=== PATIENT | male | born 1965 | race Caucasian/White ===

== ENCOUNTER 2017-01-12 09:29 | Inpatient (IN) ==
--- NOTE | 2017-01-11 16:32 | Discharge Summary ---
<TeriRaysa Noah - Last Filed: 01/11/17 16:30> Date of Encounter: 01/11/17 - Discharge Diagnosis (1) Arthritis of knee, left Priority: Primary Status: Acute (2) Tobacco use Priority: Secondary Status: Chronic (3) HTN (hypertension) Priority: Secondary Status: Chronic Qualifiers: Hypertension type: essential hypertension Qualified Code(s): I10 - Essential (primary) hypertension (4) Hyperlipidemia Priority: Secondary Status: Chronic Qualifiers: Hyperlipidemia type: unspecified Qualified Code(s): E78.5 - Hyperlipidemia , unspecified - Discharge Medications Home Medications: Omeprazole [Prilosec] 20 mg PO DAILY 03/22/15 [History] Ranitidine HCl [Zantac] 150 mg PO BID 03/22/15 [History] Simvastatin [Zocor] 20 mg PO HS 03/22/15 [History] Allopurinol [Zyloprim] 300 mg PO DAILY 03/29/15 [History] Metoprolol [Lopressor] 25 mg PO BID 03/29/15 [History] Amitriptyline [Elavil] 25 mg PO HS 04/09/16 [History] Aspirin Enteric Coated [Aspirin EC] 325 mg PO DAILY #21 tablet. 01/11/17 [Rx] OxyCODONE Immed Rel [Roxicodone 5 MG] 5 - 10 mg PO Q6HR PRN #40 tablet 01/11/17 [Rx] amLODIPine [Norvasc] 5 mg PO DAILY 01/12/17 [History] Allergies/Adverse Reactions: Allergies NSAIDS (Non-Steroidal Anti-Inflamma Adverse Reaction (Verified 01/12/17 10:27) See Comments KIDNEY SHUT DOWN Primary care physician: Ady Rock MD - Patient Status Disposition: Home, Self-Care Condition: Good - Discharge Instructions Follow Up With: Ady Rock MD [Primary Care Provider] - - Hospital Course Hospital course: Mr. Soto is a 51 year old male - Time Spent with Patient Total time spent providing and/or coordinating discharge services: <Jerald Nieto - Last Filed: 01/13/17 08:11> Date of Encounter: 01/13/17 Time of Encounter: 08:11 - Discharge Diagnosis (1) Hyperlipidemia Priority: Secondary Status: Chronic Qualifiers: Hyperlipidemia type: unspecified Qualified Code(s): E78.5 - Hyperlipidemia , unspecified (2) History of gout Priority: Secondary Status: Chronic (3) Arthritis of knee, left Priority: Primary Status: Acute (4) Tobacco use Priority: Secondary Status: Chronic (5) HTN (hypertension) Priority: Secondary Status: Chronic Qualifiers: Hypertension type: essential hypertension Qualified Code(s): I10 - Essential (primary) hypertension Primary care physician: Ady Rock MD - Patient Status Functional capacity at discharge: uses cane/walker Overall status at discharge: patient is progressing back to baseline - Hospital Course Hospital course: Mr. Soto is a 51 year old male The patient had an uneventful postoperative course. They received antibiotics and physical therapy and were discharged in stable condition. There will follow -up in the office in 2 weeks. Aspirin DVT prophylaxis - Time Spent with Patient Total time spent providing and/or coordinating discharge services:
[2017-01-12] MEDS ORDERED: Lidocaine -MPF 1% 2 ML VIAL ID ONE (09:50)
[2017-01-12] MEDS ORDERED: CeFAZolin Pre 2,000 MG/100 ML 2,000 MG/100 ML BAG IVPB ONE (09:50)
[2017-01-12] MEDS ORDERED: Albuterol 2.5 MG/3 ML NEBULIZER IH ONE (09:50)
[2017-01-12] MEDS ORDERED: Albuterol 2.5 MG/3 ML NEBULIZER ONE (09:54)
[2017-01-12] MEDS ORDERED: Ringers Solution, Lactated 1,000 ML IVC SCH ×2 (10:00→13:56)
--- NOTE | 2017-01-12 10:15 | Anesthesia Evaluation PreOp ---
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 TKR, Knee scopes, R. neck mass, pallet/nasal sx, R. forearm) Alcohol Use: none Drug use: none Medications and Allergies Omeprazole [Prilosec] 20 mg PO DAILY 03/22/15 [History] Ranitidine HCl [Zantac] 150 mg PO BID 03/22/15 [History] Simvastatin [Zocor] 20 mg PO DAILY 03/22/15 [History] Allopurinol [Zyloprim] 300 mg PO DAILY 03/29/15 [History] Metoprolol [Lopressor] 25 mg PO BID 03/29/15 [History] Amitriptyline [Elavil] 25 mg PO HS 04/09/16 [History] Aspirin Enteric Coated [Aspirin EC] 325 mg PO DAILY #21 tablet. 01/11/17 [Rx] OxyCODONE Immed Rel [Roxicodone 5 MG] 5 - 10 mg PO Q6HR PRN #40 tablet 01/11/17 [Rx] amLODIPine [Norvasc] 5 mg PO DAILY 01/12/17 [History] Allergies NSAIDS (Non-Steroidal Anti-Inflamma Adverse Reaction (Verified 01/12/17 10:27) See Comments KIDNEY SHUT DOWN - Meds/Allergy Pre-op Review Medications Reviewed: Yes Allergies Reviewed: Yes Beta Blockers on Current Med List: No Anesthesia Results - Labs Laboratory Tests 01/05/17 01/05/17 01/05/17 12:05 12:05 12:05 WBC 7.1 Hgb 14.5 Hct 44.6 Plt Count 230 INR 1.1 Sodium 143 Potassium 4.3 Chloride 107 Carbon Dioxide 26 BUN 12 04/10/16 Echo EF-65% No sig valvular dx Stress 04/10/16 EF-> 70% No ischemia - Imaging EKG: image reviewed (SR, LVH) Anesthesia Exam O2 Sat Height 1.8 m Height 1.8 m Weight 93.894 kg Weight 93.894 kg O2 Sat by Pulse Oximetry 95 O2 Sat by Pulse Oximetry 95 Vital Signs Temp Pulse Resp BP Pulse Ox 98.4 F 70 18 146/101 95 01/12/17 10:22 01/12/17 10:22 01/12/17 10:22 01/12/17 10:22 01/12/17 10:22 Height: 5'11'' Weight: 207# NPO (# of Hours): > 8 hrs Pain Scale: 0 Pain Scale Used: Numeric (1 - 10) - HEENT Pupil (Motor): Pupils equal, EOMI Mallampati: III Teeth: Edentulous Denture Type: Upper: Complete, Lower: Complete Oral Opening: Greater than 3 - RIBBON HANKING MACHINE OPERATOR LOC: Oriented RIBBON HANKING MACHINE OPERATOR Motor: Normal RUE, Normal LUE, Normal RLE, Normal LLE, Normal Face RIBBON HANKING MACHINE OPERATOR Sensory: Normal: RUE, LUE, RLE, LLE, Face - Cardiac Rhythm: Regular Murmur: None JVD: No Carotid Bruit: No - Pulmonary Breath Sounds: bilateral Clear Respiratory Effort: Symmetrical Anesthesia Assess/Plan ASA Score: 2 Modified Arabella Scale for Level of Consciousness: Cooperative, oriented, and tranquil Anesthetic Plan: General, Regional Autologous Blood: Yes Monitoring Plan: Standard Monitors Recovery Plan: PACU
--- NOTE | 2017-01-12 10:23 | History & Physical Report ---
Date of Encounter: 01/12/17 Time of Encounter: 10:23 24 Hour HP Update - Instructions Instructions: If the History and Physical is less than 30 days old and was completed prior to A.M. admission and or procedure and has NOT been updated on calendar day of procedure please complete this update prior to performing procedure. - Update Patient reports changes in Medical Condition: No Changes in examination, assessment, or condition: No Changes in Medication: No Preop tests/diagnostics Reviewed: Yes Surgery Remains Indicated: Yes Consent for Planned Operative Procedure(s) Verified: Yes - Pre-Operative Checklist Preoperative Checklist Indicated: No Prophylactic Antibiotic Ordered: Yes Is VTE Prophylaxis Indicated?: Yes
[2017-01-12] MEDS ORDERED: *HR* Propofol 200 MG/20 ML VIAL IVP ONE ×2 (10:34→11:09)
[2017-01-12] MEDS ORDERED: Lidocaine -MPF 2% 2 ML VIAL ONE ×2 (10:34→11:10)
[2017-01-12] MEDS ORDERED: *HR* Rocuronium Bromide 50 MG/5 ML VIAL ONE (10:34)
[2017-01-12] MEDS ORDERED: *HR* FentaNYL (PF) 100 MCG/2 ML VIAL ONE ×2 (10:34→11:09)
[2017-01-12] MEDS ORDERED: *HR* Midazolam HCl 2 MG/2 ML VIAL ONE ×2 (10:35→11:09)
[2017-01-12] MEDS ORDERED: Bupivacaine/Clonidine Syringe 1 EACH SYRINGE ONE ×2 (10:42→11:10)
[2017-01-12] MEDS ORDERED: *HR* HYDROmorphone (PF) 1 MG/ML SYRINGE IVP PRN (11:05)
[2017-01-12] MEDS ORDERED: *HR* Promethazine 25 MG/ML VIAL IVP PRN (11:05)
[2017-01-12] MEDS ORDERED: Ondansetron 4 MG/2 ML VIAL IVP ONE (11:05)
[2017-01-12] MEDS ORDERED: *HR* Labetalol 100 MG/20 ML MDV IVP PRN (11:05)
[2017-01-12] MEDS ORDERED: Ondansetron 4 MG/2 ML VIAL ONE ×2 (11:10→11:52)
[2017-01-12] MEDS ORDERED: Dexamethasone 4 MG/ML VIAL ONE (11:52)
[2017-01-12] MEDS ORDERED: *HR* HYDROmorphone 2 MG/ML SYRINGE ONE (11:54)
--- NOTE | 2017-01-12 12:25 | Orthopedic Operative Note ---
Date of procedure: 01/12/17 Pre-op diagnosis: Left knee arthritis Post-op diagnosis: same Procedure: Procedure: Left Total knee replacement Estimated blood loss: 200 cc Hardware: Metal and polyethylene replacement. Arthrex Femur: 6 Tibia: 70 PS insert: 12 Patella: 40 Exam Under anesthesia: Varus alignment full flexion and extension Procedural Notes: Grade 4 arthritic changes medial compartment patellofemoral joint Operative procedure: The patient was brought to the operating room and placed on the operating room table. After general anesthesia was administered the operative knee was examined. Findings were noted in the exam under anesthesia. The operative extremity was prepped and draped in sterile surgical fashion. The patient received IV antibiotics prior to skin incision. A standard midline incision was made centered over the patella. The incision was made through the skin and subcutaneous tissue. A medial parapatellar tendon approach was performed. Care was taken to preserve tissue along the medial aspect of the patella. And to protect the patella tendon. The deep MCL was released off the medial tibia. The infra patella fat pad was excised. Knee was brought into flexion. Grade 4 arthritic changes medial compartment patellofemoral joint. The entry hole was made for the intramedullary femoral guide. The guide was seated in 6 degrees of valgus. Anterior cut was made followed by the distal cut. The ACL the PCL the medial and the lateral menisci were excised. The tibia was subluxed forward. The entry hole was made for the intramedullary tibial guide. Guide was seated to resect 2 mm off the more abnormal side. The knee was brought into flexion the distal femur was sized to a 6. The femoral guide was seated, the anterior cut was made followed by the posterior condylar cut, followed by the chamfer cuts. The finishing guide was seated the box cut was made and the lug holes were drilled. The tibia was sized to a 7, the tibial tray was seated and prepared with the large drill followed by the fin cutter. Trial reduction revealed full extension no varus valgus instability with the appropriate 12 PS Dara. The patella was everted and cut was made at the level of the insertion of the quadriceps and patella tendon. The patella was sized to a 40 the guide was seated and the lug holes are drilled. Trial reduction revealed excellent patella tracking. All trial components were removed all bony surfaces were irrigated. The tibia was cemented first followed by the femur. The 12 PS Dara was seated and the knee was brought into full extension. The patella was cemented and held in place with the patellar holding clamp. After the cement had hardened, the knee sat for 2 minutes with a Betadine saline solution. The knee was then irrigated out with 2 L of pulse irrigation. The extensor mechanism was closed with #2 FiberWire suture and #2 PDS suture. The subcutaneous tissue was then irrigated and closed deep with #1 PDS suture superficially with 0 PDS suture and skin was closed with skin rosemarie. The patient was then placed in a sterile dressing and a postoperative brace extubated and transferred to recovery room in stable condition. Anesthesia: ROB Surgeon: Jerald Nieto Degree Clerk: Cami Coleman Condition: stable Disposition: PACU
--- NOTE | 2017-01-12 12:41 | Anesthesia Procedures ---
Date of Encounter: 01/12/17 Time of Encounter: 11:20 Procedures: Anesthesia - Nerve Block Procedure Date: 01/12/17 Time: 11:20 Allergies/Adv Reactions: nsaids Pre-op Diagnosis: left knee arthritis Surgical Procedure: left total knee Checklist: Correct Patient Identifier, Correct procedure, History checked Correct side: Left Blood Thinner: No Monitor Applied: EKG, BP, Pulse Oximetry Supplemental Oxygen via Nasal Cannula (L/min): 2 Sedation: Versed (mg): 2 Sedation: Fentanyl (mcg): 100 Indication: Post Op Analgesia Pre-op Neuro Deficits: No Block Type: Femoral, Other (ipac) Catheter placed: No Sterile Technique: Yes Ultrasound used: Yes Anatomy identified: Yes Visual spread of Local: Yes Neuro Stimulation: Yes Nerve Stimulator Range: 0.2 - 0.4 mA Blood on Needle Aspiration: No Smooth Injection of Local: Yes Pain with Injection of Local: No Prep: Chlorhexadine Needle: 22 x 50 mm Stimuplex, 21 x 100 mm Stimuplex Local: 0.25% Bupivicaine w/Clonidine 20 mcg/cc Volume (cc): 60 Number of Attempts: 1 Complications: None/effective block Vitals: 3 Vital Signs Time 1120 1130 BP 148/100 143/93 Pulse 75 74 Resp 16 14 O2 Sat 97 97
--- NOTE | 2017-01-12 13:30 | Anesthesia Evaluation Post Op ---
Date of Encounter: 01/12/17 Time of Encounter: 13:25 - Vital Signs Vital Signs: vss - Lungs Lungs: Clear Ascult./Percussion - Airway Airway: Non-obstructed - Cardiovascular Regular Rate - Pain Pain Scale: 0 Pain Scale used: Numeric (1 - 10) - Nausea Vomiting Nausea Vomiting: Not Present - Hydration Hydration: Tolerates oral liquids, Ice chips - Discharge PostOp Status: Transfer Patient to floor
[2017-01-12 13:33] LABS: Hematocrit 35.8 % (37.5-50.1)
[2017-01-12 13:34] LABS: Hemoglobin 11.9 g/dL (12.9-16.9)
[2017-01-12] MEDS ORDERED: Naloxone 0.4 MG/ML INJ IVP PRN (13:56)
[2017-01-12] MEDS ORDERED: Temazepam 15 MG CAPSULE PO PRN (13:56)
[2017-01-12] MEDS ORDERED: *HR* OxyCODONE Immed Rel 5 MG TABLET PO PRN (13:56)
[2017-01-12] MEDS ORDERED: MOM Conc 10 ML UD.LIQ PO PRN (13:56)
[2017-01-12] MEDS ORDERED: Sennosides 8.6 MG TABLET PO PRN (13:56)
[2017-01-12] MEDS ORDERED: Ondansetron 4 MG/2 ML VIAL IVP PRN (13:56)
[2017-01-12] MEDS: *HR* OxyCODONE Immed Rel 5 MG TABLET PO PRN ×2 (14:22→18:27)
[2017-01-12] MEDS: *HR* Enoxaparin 30 MG/0.3 ML SYRINGE SQ SCH (16:47)
[2017-01-12] MEDS: ceFAZolin 2,000 MG in D5% in Water 100 ML IVPB SCH (16:47)
[2017-01-12] MEDS: *HR* HYDROmorphone (PF) 1 MG/ML SYRINGE IVP PRN ×2 (16:58→23:14)
[2017-01-12] MEDS ORDERED: *HR* Enoxaparin 30 MG/0.3 ML SYRINGE SQ SCH (18:00)
[2017-01-12] MEDS ORDERED: Famotidine 20 MG TABLET PO SCH (21:00)
[2017-01-13] MEDS: ceFAZolin 2,000 MG in D5% in Water 100 ML IVPB SCH (00:34)
[2017-01-13 05:50] LABS: Hemoglobin 10.9 g/dL (12.9-16.9)
[2017-01-13] MEDS: *HR* Enoxaparin 30 MG/0.3 ML SYRINGE SQ SCH (06:07)
[2017-01-13 06:09] LABS: BUN/Creatinine Ratio 13 (6-26); Blood Urea Nitrogen 15 mg/dL (8-26); Carbon Dioxide 26 mEq/L (19-29); Chloride 110 mEq/L (98-109); Glucose 110 mg/dL (70-99); Osmolality,Calculated 291 (280-300); Potassium 4.6 mEq/L (3.5-4.5); Sodium 140 mEq/L (136-145); eGFR For African Americans > 60 (> 60); eGFR For Non-African Americans > 60 (> 60)
[2017-01-13] MEDS: *HR* OxyCODONE Immed Rel 5 MG TABLET PO PRN (06:17)
--- NOTE | 2017-01-13 08:12 | Orthopedics Progress Note ---
Date of Encounter: 01/13/17 Time of Encounter: 08:12 - Assessment and Plan (1) Hyperlipidemia Current Visit: No Status: Chronic Qualifiers: Hyperlipidemia type: unspecified Qualified Code(s): E78.5 - Hyperlipidemia , unspecified (2) History of gout Current Visit: No Status: Chronic (3) Arthritis of knee, left Current Visit: Yes Status: Acute (4) Tobacco use Current Visit: Yes Status: Chronic (5) HTN (hypertension) Current Visit: Yes Status: Chronic Qualifiers: Hypertension type: essential hypertension Qualified Code(s): I10 - Essential (primary) hypertension Subjective Interval history: Patient was seen this morning doing well without complaints. Afebrile vital signs stable. Operative extremity: Neurovascularly intact Dressing clean dry and intact Calves nontender Assessment and plan: Continue with postoperative care Hematocrit 34 discharged today Objective Vital signs: Vital Signs Temp Pulse Resp BP Pulse Ox 01/13/17 06:48 98.1 F 55 18 109/70 94 01/13/17 04:01 98.2 F 54 14 108/65 91 01/12/17 22:44 98 F 72 18 134/81 94 01/12/17 19:25 98.0 F 68 17 117/77 94 01/12/17 16:44 98.9 F 90 16 137/76 93 01/12/17 16:00 98.6 F 71 16 117/71 93 01/12/17 15:00 97.9 F 70 16 134/84 95 01/12/17 14:29 97.5 F L 65 14 125/84 95 01/12/17 14:00 97.6 F 69 15 127/78 95 01/12/17 13:43 97.4 F L 65 15 123/84 97 01/12/17 13:33 97.4 F L 65 21 120/86 96 01/12/17 13:23 65 14 127/91 94 01/12/17 13:13 77 15 125/96 97 01/12/17 13:03 98.0 F 79 16 127/85 98 01/12/17 11:24 67 18 96 01/12/17 11:08 66 18 143/93 96 01/12/17 10:22 98.4 F 70 18 146/101 95 Intake and Output 01/12/17 01/13/17 01/13/17 23:59 07:59 15:59 Intake Total 340 / 340 Output Total 1250 / 1250 Balance -910 / -910 Intake: IV Fluids 100 / 100 Ancef 2,000 MG In 100 / 100 Dextrose 5% 100 ML @ 200 mls/hr IVPB Q8HR MEL Rx#: [id number] Oral 240 / 240 Output: Urine 1250 / 1250 Other: Meal Dinner Percent of Meal Consumed 100% # Voids 1 - Labs CBC & BMP: 01/13/17 05:23 01/13/17 05:23 Labs: Abnormal lab results Hgb 10.9 g/dL (12.9-16.9) L 01/13/17 05:23 Hct 34.0 % (37.5-50.1) L 01/13/17 05:23 Potassium 4.6 mEq/L (3.5-4.5) H 01/13/17 05:23 Chloride 110 mEq/L (98-109) H 01/13/17 05:23 Glucose 110 mg/dL (70-99) H 01/13/17 05:23 - VTE Documentation of Mechanical Device: Venous foot pump, device Consult Discharge Plan - Plan Referrals: Ady Rock MD [Primary Care Provider] -
[2017-01-13] MEDS ORDERED: amLODIPine 5 MG TABLET PO SCH (09:00)
[2017-01-13 11:05] VITALS: BP 130/83
== END 2017-01-13 14:03 | disposition home or self-care (01) | DRG 302 ==
LOC: SAMDAY 09:29 → 3NENU 13:55
PROVIDERS: ADMIT Orthopaedic Surgery; ATTEND Orthopaedic Surgery

== ENCOUNTER 2018-05-30 05:55 | Inpatient (IN) ==
[2018-05-30] MEDS ORDERED: CeFAZolin Syr 2,000MG/20 ML 2,000 MG/20 ML SYRINGE IVPB ONE (06:22)
[2018-05-30] MEDS ORDERED: Albuterol 2.5 MG/3 ML NEBULIZER IH ONE (06:22)
[2018-05-30] MEDS ORDERED: *HR* Rocuronium Bromide 50 MG/5 ML VIAL ONE (06:55)
[2018-05-30] MEDS ORDERED: Dexamethasone 4 MG/ML VIAL ONE (06:55)
[2018-05-30] MEDS ORDERED: Ondansetron 4 MG/2 ML VIAL ONE (06:55)
[2018-05-30] MEDS ORDERED: Lidocaine -MPF 4% 5 ML AMPUL ONE (06:55)
[2018-05-30] MEDS ORDERED: *HR* Remifentanil 1 MG VIAL IVP ONE ×2 (06:55→10:40)
[2018-05-30] MEDS ORDERED: *HR* Succinylcholine 200 MG/10 ML VIAL IVP ONE (06:55)
[2018-05-30] MEDS ORDERED: *HR* Phenylephrine 10 MG/ML VIAL ONE ×2 (06:55→07:02)
[2018-05-30] MEDS ORDERED: Lidocaine -MPF 2% 2 ML VIAL ONE ×2 (06:55→06:59)
[2018-05-30] MEDS ORDERED: *HR* Midazolam HCl 2 MG/2 ML VIAL ONE (06:56)
[2018-05-30] MEDS ORDERED: *HR* FentaNYL (PF) 100 MCG/2 ML VIAL ONE ×3 (06:56→11:11)
[2018-05-30] MEDS ORDERED: *HR* Propofol 200 MG/20 ML VIAL IVP ONE (06:56)
[2018-05-30] MEDS ORDERED: Famotidine 20 MG/2 ML VIAL IVP ONE (07:29)
[2018-05-30] MEDS ORDERED: Acetaminophen IV 1,000 MG/100 ML INFUS..BTL IVPB ONE (07:29)
--- NOTE | 2018-05-30 07:29 | Anesthesia Evaluation PreOp ---
Date of Encounter: 05/30/18 Time of Encounter: 07:27 - Past History Planned Operation: PLIF L5-S1, Laminectomy L2-3 Cardiac History: HTN, Hyperlipidemia, Other (pulmonary HTN mild) Pulmonary History: Smoker (1.5 ppd), Snore HELP DESK ASSISTANT History: Other (chronic back pain, lumbar stenosis) Other Medical History: Renal (CKD), GERD Anesthesia History: No Prior Anesthetic Complications, Past Anesthesia (cleft lip, pallet surgery,) Alcohol Use: none Drug use: none Medications and Allergies 3 Allergy/AdvReac Type Severity Reaction Status Date / Time NSAIDS (Non-Steroidal AdvReac See Verified 05/30/18 07:28 Anti-Inflamma Comments - Meds/Allergy Pre-op Review Medications Reviewed: Yes Allergies Reviewed: Yes Beta Blockers on Current Med List: Yes (metoprolol) If Beta Blockers taken, Date/Time (Last Dose taken): 429 Anesthesia Results - Labs Laboratory Tests 05/26/18 05/26/18 05/26/18 14:28 14:28 14:28 WBC 6.4 Hgb 14.8 Hct 45.6 Plt Count 223 PT 11.1 INR 1.0 APTT 31.9 Sodium 139 Potassium 4.4 Chloride 107 Carbon Dioxide 27 BUN 17 Creatinine 1.28 Est GFR ( Amer) > 60 Est GFR (Non-Af Amer) 59 L - Imaging EKG: report reviewed (SINUS RHYTHM MINIMAL VOLTAGE CRITERIA FOR LVH, CONSIDER NORMAL VARIANT NONSPECIFIC T-WAVE ABNORMALITY), image reviewed Additional studies: Impressions: LVEF 60-65%. Normal left ventricular diastolic function. Borderline dilated RV with normal function No significant valvular dysfunction. Probable mild pulmonary hypertension Anesthesia Exam Vital Signs/O2 Sat/Glucose, Most Recent Temp Pulse Resp BP Pulse Ox 97.8 F 69 18 135/93 98 05/30/18 06:28 05/30/18 06:28 05/30/18 06:28 05/30/18 06:28 05/30/18 06:28 - HEENT Pupil (Motor): Pupils equal Mallampati: III (previous valenzuela 2 no mention of difficult airway) Teeth: Edentulous Oral Opening: Greater than 3 - HELP DESK ASSISTANT LOC: Oriented HELP DESK ASSISTANT Motor: Normal RUE, Normal LUE, Normal RLE, Normal LLE, Normal Face HELP DESK ASSISTANT Sensory: Normal: RUE, LUE, RLE, LLE, Face - Cardiac Rhythm: Regular Murmur: None - Pulmonary Breath Sounds: bilateral Clear Respiratory Effort: Symmetrical Anesthesia Assess/Plan ASA Score: 3 Modified Arabella Scale for Level of Consciousness: Cooperative, oriented, and tranquil Anesthetic Plan: General Monitoring Plan: Standard Monitors Recovery Plan: PACU
[2018-05-30] MEDS ORDERED: Famotidine 20 MG/2 ML VIAL ONE (07:33)
[2018-05-30] MEDS ORDERED: Acetaminophen IV 1,000 MG/100 ML INFUS..BTL ONE (07:33)
[2018-05-30] MEDS: Ringers Solution, Lactated 1,000 ML IVC SCH ×6 (07:34→22:39)
--- NOTE | 2018-05-30 07:35 | History & Physical Report ---
Date of Encounter: 05/30/18 Time of Encounter: 07:34 24 Hour HP Update - Instructions Instructions: If the History and Physical is less than 30 days old and was completed prior to A.M. admission and or procedure and has NOT been updated on calendar day of procedure please complete this update prior to performing procedure. - Update Patient reports changes in Medical Condition: No Changes in examination, assessment, or condition: No Changes in Medication: No Preop tests/diagnostics Reviewed: Yes Pre-Op MRSA Screen: Negative Surgery Remains Indicated: Yes Consent for Planned Operative Procedure(s) Verified: Yes - Pre-Operative Checklist Preoperative Checklist Indicated: No Prophylactic Antibiotic Ordered: Yes Home Medications Include Beta Noelle: No Beta Noelel Taken Today (Day of Surgery): No Beta Noelle Taken Yesterday (Day Prior to Surgery): No Is VTE Prophylaxis Indicated?: Yes
[2018-05-30] MEDS ORDERED: Bacitracin 50,000 UNIT, Polymyxin B Sulfate 500,000 UNIT, Sodium Chloride IRRigation 1,... IR ONE (07:45)
[2018-05-30] MEDS ORDERED: EPHEDrine 50 MG/ML VIAL ONE (08:23)
[2018-05-30] MEDS ORDERED: *HR* Labetalol 20 MG/4 ML SYRINGE IVP PRN (09:10)
[2018-05-30] MEDS ORDERED: Ondansetron 4 MG/2 ML VIAL IVP ONE (09:10)
[2018-05-30] MEDS ORDERED: *HR* OxyCODONE Immed Rel 5 MG TABLET PO PRN (09:10)
[2018-05-30] MEDS ORDERED: *HR* Promethazine 25 MG/ML VIAL IVP PRN (09:10)
[2018-05-30] MEDS: *HR* HYDROmorphone (PF) 1 MG/ML SYRINGE IVP PRN ×2 (11:51→11:56)
--- NOTE | 2018-05-30 12:31 | Anesthesia Evaluation Post Op ---
Date of Encounter: 05/30/18 Time of Encounter: 12:25 - Vital Signs Vital Signs: Vital Signs/O2 Sat, Most Current Temp Pulse Resp BP Pulse Ox 98.3 F 81 14 101/71 93 05/30/18 12:11 05/30/18 12:21 05/30/18 12:21 05/30/18 12:21 05/30/18 12:21 - Lungs Lungs: Clear Ascult./Percussion - Airway Airway: Non-obstructed - Cardiovascular Regular Rate - Mental Status Mental Status: Alert & Oriented, Answers Appropriately - Pain Pain Scale: 9 (has rec'd pain med, falls quickly back to sleep) Pain Scale used: Numeric (1 - 10) - Nausea Vomiting Nausea Vomiting: Not Present - Hydration Hydration: Ice chips, West catheter - Discharge PostOp Status: Transfer Patient to floor
[2018-05-30] MEDS ORDERED: Naloxone 0.4 MG/ML INJ IVP PRN (16:52)
[2018-05-30] MEDS ORDERED: Ondansetron 4 MG/2 ML VIAL IVP PRN (16:52)
[2018-05-30] MEDS ORDERED: Acetaminophen 325 MG TABLET PO PRN (16:52)
[2018-05-30] MEDS: *HR* OxyCODONE Immed Rel 5 MG TABLET PO PRN ×2 (18:22→22:34)
[2018-05-30] MEDS: ceFAZolin 1,000 MG in Water for inj. (sterile) 20 ML 10 ML IVP SCH (18:36)
[2018-05-30] MEDS: Famotidine 20 MG TABLET PO SCH (21:08)
[2018-05-31] MEDS: ceFAZolin 1,000 MG in Water for inj. (sterile) 20 ML 10 ML IVP SCH (02:19)
[2018-05-31 05:46] LABS: Basophils % 0.1 %; Hematocrit 36.3 % (37.5-50.1); Immature Granulocytes % 0.5 % (0-4); Lymphocytes # 1.1 K/mcL (0.6-4.6); Lymphocytes % 7.2 %; Mean Corpuscular HGB Conc 33.1 g/dL (31.6-35.5); Mean Corpuscular Hemoglobin 31.8 pg (28.0-33.3); Mean Corpuscular Volume 96.3 fL (83.0-100.0); Mean Platelet Volume 10.7 fL (9.4-12.4); Monocytes # 0.7 K/mcL (0.0-1.3); Monocytes % 4.6 %; Neutrophils # 13.8 K/mcL (1.6-8.9); Platelet Count 193 K/mcL (140-400); Red Blood Count 3.77 M/mcL (4.19-5.50); Segmented Neutrophils % 87.6 %
[2018-05-31 06:04] LABS: BUN/Creatinine Ratio 15 (6-26); Blood Urea Nitrogen 19 mg/dL (6-20); Carbon Dioxide 25 mEq/L (23-29); Chloride 108 mEq/L (98-107); Glucose 130 mg/dL (70-105); Osmolality,Calculated 296 (280-300); Potassium 5.3 mEq/L (3.5-5.1); Sodium 141 mEq/L (136-145); eGFR For Non-African Americans 60 (> 60)
[2018-05-31] MEDS: *HR* OxyCODONE Immed Rel 5 MG TABLET PO PRN ×4 (06:06→22:30)
[2018-05-31] MEDS: Famotidine 20 MG TABLET PO SCH ×2 (08:06→20:25)
[2018-05-31] MEDS: *HR* HYDROcodone/Acet 5/325 mg TABLET PO PRN ×2 (08:19→20:51)
[2018-05-31] MEDS ORDERED: Lisinopril 20 MG TABLET PO SCH (09:00)
[2018-05-31] MEDS ORDERED: amLODIPine 5 MG TABLET PO SCH (09:00)
--- NOTE | 2018-05-31 13:59 | Spine Progress Note ---
Date of Encounter: 05/31/18 Time of Encounter: 13:58 Subjective Principal diagnosis: Spondylolisthesis, lumbar radiculopathy, lumbar stenosis Interval history: The patient is without complaints. States he has had significant relief of leg pain post surgery. Afebrile vital signs are stable. Dressing is clean dry and intact. Neurovascularly intact with regard to bilateral lower extremities. Fires all upper and lower extremity motor groups. . Assessment :stable. Plan mobilize ,continue analgesics, discharge planning. Objective Vital signs: Vital Signs Temp Pulse Resp BP Pulse Ox 05/31/18 11:16 98.6 F 80 18 124/82 94 05/31/18 10:06 128/79 05/31/18 07:07 97.9 F 76 18 123/79 93 05/31/18 03:43 97.9 F 76 16 127/79 95 05/30/18 23:02 97.7 F 84 16 116/76 95 05/30/18 19:04 98.0 F 78 17 113/69 95 05/30/18 16:18 97.7 F 86 19 114/65 93 05/30/18 15:02 97.9 F 76 18 111/68 97 05/30/18 14:04 97.9 F 75 16 105/65 93 Intake and Output 05/30/18 05/31/18 05/31/18 23:59 07:59 15:59 Intake Total 1460 / 1460 1840 / 1840 Output Total 1999 1450 / 1450 950 / 950 Balance -540 / -540 -1450 / -1450 890 / 890 Intake: IV Fluids 1010 / 1010 1000 / 1000 Lactated Ringers 1,000 ML @ 100 1000 / 1000 1000 / 1000 mls/hr IVC .Q10H MEL Rx#: [id number] Ancef 1,000 MG In Water for inj . (sterile) 10 ML @ 200 mls/hr IVP Q8H MEL Rx#:[id number] Oral 450 / 450 840 / 840 Output: Urine 950 / 950 Catheter 1999 1450 / 1450 Urethral (Ewst) 1400 / 1400 Other: Meal Dinner Lunch Percent of Meal Consumed 100% 100% - Labs CBC & BMP: 05/31/18 05:28 05/31/18 05:28 Labs: Abnormal lab results WBC 15.8 K/mcL (4.3-11.1) H D 05/31/18 05:28 RBC 3.77 M/mcL (4.19-5.50) L 05/31/18 05:28 Hgb 12.0 g/dL (12.9-16.9) L D 05/31/18 05:28 Hct 36.3 % (37.5-50.1) L 05/31/18 05:28 Neutrophils # 13.8 K/mcL (1.6-8.9) H 05/31/18 05:28 Potassium 5.3 mEq/L (3.5-5.1) H 05/31/18 05:28 Chloride 108 mEq/L (98-107) H 05/31/18 05:28 Glucose 130 mg/dL (70-105) H 05/31/18 05:28 Consult Discharge Plan - Plan Referrals: Ady Rock MD [Primary Care Provider] -
[2018-05-31] MEDS ORDERED: ceFAZolin 1,000 MG in Water for inj. (sterile) 20 ML 10 ML IVP SCH (16:30)
[2018-05-31] MEDS: Ringers Solution, Lactated 1,000 ML IVC SCH (20:27)
[2018-06-01 14:18] VITALS: BP 126/81
--- NOTE | 2018-06-01 15:28 | Discharge Summary ---
- NOTES TO OUTPATIENT PROVIDER Notes to Outpatient Provider: Follow-up in spine Center in 2 weeks Orders not resulted at time of discharge: Pending orders 05/30/18 XR fluoroscopy <1 hr [XR] Routine 06/01/18 09:20 Complete Blood Count [HEME] Stat Prothrombin Time INR [COAG] Stat Date of Encounter: 06/01/18 Time of Encounter: 15:26 - Discharge Diagnosis (1) Spondylolisthesis at L5-S1 level Priority: Primary Status: Chronic (2) Lumbar stenosis Priority: Secondary Status: Chronic Qualifiers: Neurogenic claudication status: without neurogenic claudication Qualified Code(s): M48.061 - Spinal stenosis, lumbar region without neurogenic claudic ation (3) Lumbar radiculopathy Priority: Secondary Status: Chronic - Hospital Course Hospital course: Mr. Soto is a 52 year old male The patient had an uneventful postoperative course. Progressed from intravenous analgesic needs to oral analgesic needs only. Remained neurovascularly intact and mobilized satisfactorily. All intraoperative and/or postoperative radiographic studies were satisfactory. Patient is discharged with plan for rehabilitation and follow-up in 2 weeks post discharge on analgesic medication and patient's home medications. - Time Spent with Patient Total time spent providing and/or coordinating discharge services: - Discharge Medications Prescriptions: OxyCODONE Immed Rel [Roxicodone 5 MG] 5 mg PO Q4HR PRN 7 Days #30 tablet PRN Reason: Pain Home Medications: Acetaminophen [Tylenol] 500 mg PO Q6HR PRN 05/30/18 [History] Allopurinol [Zyloprim 300 MG] 300 mg PO DAILY 05/30/18 [History] Amlodipine Besylate 10 mg PO DAILY 05/30/18 [History] HYDROcodone/Acet 5/325 mg [[place] 5-325 mg] 1 tab PO Q6H PRN 05/30/18 [History] Lisinopril [Zestril] 20 mg PO DAILY 05/30/18 [History] Metoprolol Tartrate 25 mg PO BID 05/30/18 [History] Omeprazole [PriLOSEC] 20 mg PO DAILY 05/30/18 [History] Ranitidine HCl [Heartburn Relief] 150 mg PO BID 05/30/18 [History] Simvastatin [Zocor] 20 mg PO HS 05/30/18 [History] OxyCODONE Immed Rel [Roxicodone 5 MG] 5 mg PO Q4HR PRN 7 Days #30 tablet 06/01/18 [Rx] Allergies/Adverse Reactions: Allergy/AdvReac Type Severity Reaction Status Date / Time NSAIDS (Non-Steroidal AdvReac See Verified 05/30/18 07:28 Anti-Inflamma Comments Date of admission: 05/30/18 13:06 Primary care physician: Ady Rock MD Consults: 05/30/18 16:52 Consult to Occupational Therapy [CONS] Routine Comment: Evaluate, develop and implement POC Reason for Consult: Postoperative rehabilitation Does patient have active BEDREST order?: No Is patient medically & hemodynamically stable?: Yes Patient assessed for mobility or mobilized this visit?: No Consult to Physical Therapy [CONS] Routine Comment: Evaluate, develop and implement POC Reason for Consult: Postoperative rehabilitation Does patient have active BEDREST order?: No Is patient medically & hemodynamically stable?: Yes Patient assessed for mobility or mobilized this visit?: No Consult to Spine Navigator [CONS] [CONS] Routine - Impressions ITS Impressions Lumbar Spine X-Ray 05/30/18 00:00 IMPRESSION: Surgical probes posterior to the L2 and L3 vertebrae. Intraoperative imaging with surgical retractors present. L5-S1 posterior lumbar spinal fusion with discectomy. Multilevel mild to moderate degenerative changes. D/ / 05/30/2018 12:40:18 Terrence Connor MD / stephon Interpreting Provider: Terrence Connor MD Lumbar Spine X-Ray 06/01/18 00:00 IMPRESSION: Thoracolumbar spondylosis status post L5-S1 discectomy with posterior fusion. No immediate hardware complication. Unchanged degenerative grade 1 subluxations along the upper and mid lumbar spine D/ / Gavin Gamble / Gavin Gamble Interpreting Provider: Gavin Gamble - Patient Status Disposition: Home, Self-Care Condition: Good Functional capacity at discharge: uses cane/walker Overall status at discharge: patient is progressing back to baseline - Discharge Instructions Follow Up With: Cami Garza, PAC [Physician Bull Ladle Tender] - 06/13/18 1:15 pm Oliverio Castle Jr, MD [Partnered Physician] - 08/31/18 11:45 am Additional Instructions: Discharge Instructions: Lumbar Please call [facility] ([phone]), your Primary Care Physician, or report to the ER if you have any of the following symptoms: Fever greater that 101.5, increased pain/redness/drainage/odor for your incision site or any other concerning symptoms. ACTIVITY * May Shower * No Tub Baths * No lifting greater than 10 pounds * No Smoking * No Swimming * No off Ground Activities (Running, Climbing, Ladders, Horseback Riding) * No Driving * Wear Back Brace when up walking if lumbar fusion done * Incentive Spirometer 10 times an hour MEDICATIONS: Upon discharge resume your home medications. Take all the medications as prescribed. Take a stool softener if taking narcotic pain medications. Stool softeners are only effective if you drink enough fluids. Drink 6-8 glass of water or fluids a day, unless this is not allowed for another health problem. Despite using stool softeners, if you haven't had a bowel movement in 3 days, please switch to a gentle laxative. Gentle laxatives are sold over the counter. You should have a bowel movement within 24 hours, if not call the office. You will be discharged from the hospital with a prescription for pain medication. You are encouraged to decrease the use of narcotic pain medication as tolerated. Should you require a refill, please call the office. It is best to call 48-72 hours in advance of needing a prescription refill so you don't run out of medication. WOUND CARE: Remove Dressing Tomorrow. Leave incision open to air. Pat dry when you get out of the shower. FOLLOW-UP: Please follow up with your surgeon in the orthopedic clinic in 2 weeks from the day of surgery. References: [employer] ([email or web address]) - Diet and Activity Activity: as per physical therapy Diet: advance to your usual diet
[2018-06-01] MEDS ORDERED: Lisinopril 20 MG TABLET PO ONE (17:06)
[2018-06-01] MEDS ORDERED: *HR* OxyCODONE Immed Rel 5 MG TABLET PO ONE ×3 (17:06)
[2018-06-01] MEDS ORDERED: *HR* HYDROcodone/Acet 5/325 mg TABLET PO ONE (17:06)
[2018-06-01] MEDS ORDERED: Famotidine 20 MG TABLET PO ONE (17:06)
[2018-06-01] MEDS ORDERED: amLODIPine 5 MG TABLET PO ONE (17:06)
--- NOTE | 2018-06-05 11:52 | Orthopedic Operative Note ---
Date of procedure: 05/30/18 Pre-op diagnosis: Spondylolisthesis, lumbar stenosis Post-op diagnosis: same Operation/Findings: Posterior lumbar interbody fusion L5-S1, laminectomy L2-3: The patient successfully underwent general endotracheal anesthesia. The patient was given antibiotics prior to the start of the procedure. Compression boots and stockings were used for deep vein thrombosis prophylaxis. A West catheter was placed. Leads for neuro monitoring were placed on the upper and lower extremities. This included the cranium. The neuro monitoring personnel confirmed there were satisfactory readings prior to the start of the procedure. The patient was turned prone on the To table. The back was prepped and draped in the usual sterile fashion. An incision was was marked and centered over the involved L2-3 and L5-S1 levels in the mid line. The incision was deepened through the lumbar fascia. Bovie cautery and Rich elevators were used to reflect the paraspinal musculature at the lateral extent of the transverse processes of the involved L5-S1 levels. At L2-3, the paraspinal musculature was dissected to the lateral extent of the L2-3 facet joints. Fatuma clamps were placed over the L2-3 and L5-S1 spinous processes. An intraoperative lateral fluoroscopy graft was obtained. A conversation was held between the surgeon and radiologist and both confirmed we had the correct operative levels. We then placed pedicle screws in standard fashion with the aid of fluoroscopy and anatomic landmarks. Briefly a starter awl was used. A gearshift was subsequently used to enter the test pilot hole via a transpedicular route into the vertebral body. The test pilot hole was tapped with an undersized instrument, and subsequently four 6.5 x 40 mm pedicle screws were placed bilaterally at the indicated L5 and S1 levels. The screws were tested with the aid of the neurologic monitoring staff via pedicle screw stimulation. All reading suggested there was no significant cortical wall breech. The screws were also evaluated fluoro- graphically and appeared to be in satisfactory position. We then turned our attention to the decompression portion of the procedure. We removed the supraspinous and interspinous ligaments and subsequently the insertion of the ligamentum flavum on the undersurface of the proximal L5 lamina was dislodged with a curette. We then removed the ligamentum flavum as well as undercut the L5-S1 facets at this level to decompress the lateral recesses. We also performed a L5 laminectomy. After the decompression ,which was over and above that which was required to place the interbody graft, the foramen and traversing roots at this L5-S1 level were found to be free and patent. We also took part of the medial facets in order to aid in the decompression. We then protected the neural elements including the thecal sac and traversing nerve root on the right with a dural retractor. We made an annulotomy into the L5-S1 disc space and then removed entire disc material using Pituitary instruments. We trialed various size grafts after the endplates were prepared for graft insertion. A 10 x 26 enter body graft fit well within the L5-S1 disc space. We obtained some bone from the right posterior superior iliac spine through us a separate incision and combined with this with the bone which we had saved from the laminectomy portion of the procedure. This autograft bone was first placed in the anterior portion of the L5-S1 disc space and additional bone was placed within the interbody graft spacer. We then placed the interbody graft spacer obliquely across the L5-S1 disc space towards the midline while protecting the neural elements with a root retractor. When the graft was found to be in satisfactory position the lamination machine operator was removed. We turned our attention to the L2-3 level where we removed the supraspinous and interspinous ligaments. We then removed hypertrophied ligamentum flavum, and undercut the L2-3 facets to decompress the lateral recesses. We also performed a partial L2 laminectomy. We checked the foramen and traversing nerve roots at this level and they were found to be free and patent. We then copiously irrigated the wound. We then decorticated the L5 transverse processes as well as the L5-S1 facet joints and proximal portion of the sacrum of the involved L5-S1 levels to aid in the posterolateral fusion. We placed autograft bone in the lateral gutters over these regions. We then placed rods within the screw heads of the involved L5-S1 levels and first locked the distal screws and then subsequently locked the proximal screws so as to improve and reduce the spondylolisthesis previously seen. We then closed the wound in layers with 1 Vicryl for the fascia, 2-0 Vicryl. Subcutaneous tissue, and Dermabond was used for skin closure. Sterile dressings were placed over the wound. The patient was turned supine on a hospital bed and extubated. All sponge instruments and needle counts were correct at the end of the procedure. The patient tolerated the procedure well without complications. Anesthesia: GETA Surgeon: Oliverio Castle Jr Was there an engineering assistant present: No Estimated blood loss (cc): 150 Specimen: None Condition: stable Disposition: PACU
== END 2018-06-01 17:07 | disposition home or self-care (01) | DRG 455 ==
LOC: SAMDAY 05:55 → 3NENU 13:06
PROVIDERS: ADMIT Orthopaedic Surgery Orthopaedic Surgery of the Spine; ATTEND Orthopaedic Surgery Orthopaedic Surgery of the Spine